=== PATIENT | male | born 1965 | race Hispanic/Latino ===

== ENCOUNTER 2016-04-10 09:25 | Emergency (ER) | payer SELFPAY ==
[2016-04-10] MEDS ORDERED: SODIUM CHLORIDE 0.9% 2,000 ML ONE (10:31)
[2016-04-10] MEDS ORDERED: CEFTRIAXONE 1 GM VIAL ONE (14:10)
[2016-04-10] MEDS ORDERED: SODIUM CHLORIDE 0.9% 1,000 ML ONE (14:10)
[2016-04-10] MEDS ORDERED: SODIUM CHLORIDE 0.9% 100 ML IV ONE (14:10)
[2016-04-10] MEDS ORDERED: ACETAMINOPHEN 325 MG TAB ONE (14:31)
[2016-04-10] MEDS ORDERED: DIPHENHYDRAMINE 50 MG/ML VIAL ONE (14:50)
== END 2016-04-10 17:09 | disposition home or self-care (01) ==
LOC: ER 09:25
DX: N10 Acute pyelonephritis (principal); I10 Essential (primary) hypertension; F17.290 Nicotine dependence, other tobacco product, uncomplicated
CPT/HCPCS: 36415; 71010; 80053; 81001; 83690; 85025; 87088; 93005; 96361; 96365; 96375